=== PATIENT | female | born 1930 | race Caucasian/White ===

== ENCOUNTER 2017-05-07 09:05 | Observation (INO) | payer MEDICARE ==
[2017-05-07] MEDS ORDERED: DIAZEPAM 5 MG/ML 2 ML SYRINGE IVP STA (09:09)
[2017-05-07] MEDS ORDERED: MECLIZINE 25 MG TAB PO STA (09:09)
[2017-05-07] MEDS ORDERED: LABETALOL 5 MG/ML VIAL MDV IVP STA (09:09)
[2017-05-07] MEDS ORDERED: ENALAPRILAT 1.25 MG/ML 1 ML VIAL IVP STA (09:10)
--- NOTE | 2017-05-07 09:13 | ED ---
General Adult HPI - General Stated complaint: Dizziness Time Seen by Provider: 05/07/17 09:05 Source: RN notes reviewed - History of Present Illness Initial comments: This is an 86-year-old female presents emergency Department complaining of dizziness since last night at 8:00. Patient states all of a sudden she got up from her chair and the whole room was spinning and she can barely walk because of the severity of the dizziness. Patient states she also became very nauseated. Patient denies any headache patient denies numbness weakness. Patient states that the dizziness is better with her eyes shut bowel movement her head does not appear to make it worse. Patient denies any palpitations or chest pain. Patient denies being short of breath or having any difficulty breathing. Patient denies abdominal pain patient denies nausea vomiting or diarrhea. Patient denies any recent fever chills or cough. Patient states last night she had a little ringing in the left ear but that is gone now. Patient denies any sudden loss of hearing. Patient denies any similar symptoms in the past. - Related Data Home Medications Medication Instructions Recorded Confirmed Aspirin 81 mg PO DAILY 05/07/17 05/07/17 Atenolol [Tenormin] 50 mg PO DAILY 05/07/17 05/07/17 Calcium Carbonate [Calcium] 1,200 mg PO DAILY 05/07/17 05/07/17 Cholecalciferol (Vitamin D3) 2,000 unit PO DAILY 05/07/17 05/07/17 [Vitamin D3] Fenofibrate [Lofibra] 160 mg PO DAILY 05/07/17 05/07/17 Lisinopril-Hctz 20-12.5 mg 1 tab PO DAILY 05/07/17 05/07/17 [Zestoretic 20-12.5] Multivitamins, Thera [Multivitamin 1 tab PO DAILY 05/07/17 05/07/17 (formulary)] Omeprazole [PriLOSEC] 40 mg PO DAILY 05/07/17 05/07/17 Raloxifene [Evista] 60 mg PO DAILY 05/07/17 05/07/17 Simvastatin [Zocor] 40 mg PO HS 05/07/17 05/07/17 Allergies Allergy/AdvReac Type Severity Reaction Status Date / Time No Known Allergies Allergy Verified 05/07/17 10:28 Review of Systems ROS Statement: Those systems with pertinent positive or pertinent negative responses have been documented in the HPI. ROS Other: All systems not noted in ROS Statement are negative. General Exam - General Exam Comments Initial Comments: GENERAL: Patient is well-developed and well-nourished. Patient is nontoxic and well- hydrated and is in moderate distress. ENT: Neck is soft and supple. No significant lymphadenopathy is noted. Oropharynx is clear. Moist mucous membranes. Neck has full range of motion without eliciting any pain. EYES: The sclera were anicteric and conjunctiva were pink and moist. Extraocular movements were intact and pupils were equal round and reactive to light. Eyelids were unremarkable. PULMONARY: Unlabored respirations. Good breath sounds bilaterally. No audible rales rhonchi or wheezing was noted. CARDIOVASCULAR: There is a regular rate and rhythm without any murmurs gallops or rubs. ABDOMEN: Soft and nontender with normal bowel sounds. No palpable organomegaly was noted. There is no palpable pulsatile mass. SKIN: Skin is clear with no lesions or rashes and otherwise unremarkable. NEUROLOGIC: Patient is alert and oriented x3. Cranial nerves II through XII are grossly intact. Motor and sensory are also intact. Normal speech, volume and content. Symmetrical smile. Cerebellar testing is normal with finger to nose. MUSCULOSKELETAL: Normal extremities with adequate strength and full range of motion. LYMPHATICS: No significant lymphadenopathy is noted PSYCHIATRIC: Normal psychiatric evaluation. Course Vital Signs 05/07/17 05/07/17 05/07/17 09:06 09:26 10:57 Temperature 97.1 F L Pulse Rate 65 66 Respiratory 18 18 Rate Blood Pressure 181/75 152/68 O2 Sat by Pulse 99 98 Oximetry Medical Decision Making - Medical Decision Making EKG shows normal sinus rhythm at 61 bpm NC interval is 138 QRS is 86 QT interval is 452 QTC is 455. EKG shows no ST segment elevation or depression. CT of the brain shows no acute normalities. Chest x-ray shows no acute normalities. Patient received Antivert and Valium. Patient was reevaluated after she had received those medications. Patient was unable to sit up in bed without spinning and becoming severely nauseated. I spoke with Dr. Ricardo she agreed to admit the patient admitted the patient I consult the neurology. I spoke with Dr. Ricardo and she wanted the patient on aspirin daily as well as steroids. - Lab Data Result diagrams: 05/07/17 09:17 05/07/17 09:17 Lab Results 05/07/17 05/07/17 05/07/17 Range/Units 09:17 09:17 09:17 WBC 7.3 (3.8-10.6) k/uL RBC 4.30 (3.80-5.40) m/uL Hgb 13.5 (11.4-16.0) gm/dL Hct 39.3 (34.0-46.0) % MCV 91.4 (80.0-100.0) fL MCH 31.3 (25.0-35.0) pg MCHC 34.2 (31.0-37.0) g/dL RDW 13.5 (11.5-15.5) % Plt Count 180 (150-450) k/uL Neutrophils % 69 % Lymphocytes % 21 % Monocytes % 5 % Eosinophils % 0 % Basophils % 0 % Neutrophils # 5.1 (1.3-7.7) k/uL Lymphocytes # 1.6 (1.0-4.8) k/uL Monocytes # 0.4 (0-1.0) k/uL Eosinophils # 0.0 (0-0.7) k/uL Basophils # 0.0 (0-0.2) k/uL PT (9.0-12.0) sec INR (<1.1) APTT (22.0-30.0) sec Sodium 141 (137-145) mmol/L Potassium 3.6 (3.5-5.1) mmol/L Chloride 104 (98-107) mmol/L Carbon Dioxide 24 (22-30) mmol/L Anion Gap 13 mmol/L BUN 31 H (7-17) mg/dL Creatinine 0.90 (0.52-1.04) mg/dL Est GFR (MDRD) Af Amer >60 (>60 ml/min/1.73 sqM) Est GFR (MDRD) Non-Af 59 (>60 ml/min/1.73 sqM) Glucose 119 H (74-99) mg/dL Calcium 9.6 (8.4-10.2) mg/dL Magnesium 1.5 L (1.6-2.3) mg/dL Total Bilirubin 0.6 (0.2-1.3) mg/dL AST 32 (14-36) U/L ALT 35 (9-52) U/L Alkaline Phosphatase 55 (38-126) U/L Total Creatine Kinase 53 (30-135) U/L CK-MB (CK-2) 1.4 (0.0-2.4) ng/mL CK-MB (CK-2) Rel Index 2.6 Troponin I <0.012 (0.000-0.034) ng/mL Total Protein 6.4 (6.3-8.2) g/dL Albumin 3.9 (3.5-5.0) g/dL 05/07/17 Range/Units 09:17 WBC (3.8-10.6) k/uL RBC (3.80-5.40) m/uL Hgb (11.4-16.0) gm/dL Hct (34.0-46.0) % MCV (80.0-100.0) fL MCH (25.0-35.0) pg MCHC (31.0-37.0) g/dL RDW (11.5-15.5) % Plt Count (150-450) k/uL Neutrophils % % Lymphocytes % % Monocytes % % Eosinophils % % Basophils % % Neutrophils # (1.3-7.7) k/uL Lymphocytes # (1.0-4.8) k/uL Monocytes # (0-1.0) k/uL Eosinophils # (0-0.7) k/uL Basophils # (0-0.2) k/uL PT 11.3 (9.0-12.0) sec INR 1.1 (<1.1) APTT 21.2 L (22.0-30.0) sec Sodium (137-145) mmol/L Potassium (3.5-5.1) mmol/L Chloride (98-107) mmol/L Carbon Dioxide (22-30) mmol/L Anion Gap mmol/L BUN (7-17) mg/dL Creatinine (0.52-1.04) mg/dL Est GFR (MDRD) Af Amer (>60 ml/min/1.73 sqM) Est GFR (MDRD) Non-Af (>60 ml/min/1.73 sqM) Glucose (74-99) mg/dL Calcium (8.4-10.2) mg/dL Magnesium (1.6-2.3) mg/dL Total Bilirubin (0.2-1.3) mg/dL AST (14-36) U/L ALT (9-52) U/L Alkaline Phosphatase (38-126) U/L Total Creatine Kinase (30-135) U/L CK-MB (CK-2) (0.0-2.4) ng/mL CK-MB (CK-2) Rel Index Troponin I (0.000-0.034) ng/mL Total Protein (6.3-8.2) g/dL Albumin (3.5-5.0) g/dL Disposition Clinical Impression: Vertigo Disposition: ADMITTED IP TO THIS HOSP Referrals: Aemya Beatty MD [Primary Care Provider] - 1-2 days Time of Disposition: 11:14
[2017-05-07 09:30] LABS: Basophils % (A) 0 %; CH 32.1; CHCM 35.2; Eosinophils % (A) 0 %; HCT 39.3 % (34.0-46.0); HDW 2.34; HGB 13.5 gm/dL (11.4-16.0); Luc # (Auto) 0.28; Luc % (Auto) 4; Lymphocytes # (A) 1.6 k/uL (1.0-4.8); Lymphocytes % (A) 21 %; MCH 31.3 pg (25.0-35.0); MCHC 34.2 g/dL (31.0-37.0); MCV 91.4 fL (80.0-100.0); Mean Platelet Volume 8.6; Monocytes # (A) 0.4 k/uL (0-1.0); Monocytes % (A) 5 %; Neutrophils # (A) 5.1 k/uL (1.3-7.7); Neutrophils % (A) 69 %; RDW 13.5 % (11.5-15.5); WBC 7.3 k/uL (3.8-10.6); WBC (Perox) 7.27
[2017-05-07 09:37] LABS: AST 32 U/L (14-36); Alkaline Phosphatase 55 U/L (38-126); Blood Urea Nitrogen 31 mg/dL (7-17); Calcium 9.6 mg/dL (8.4-10.2); Carbon Dioxide 24 mmol/L (22-30); Glucose 119 mg/dL (74-99); Non-African American GFR(MDRD) 59 (>60 ml/min/1.73 sqM); Total Bilirubin 0.6 mg/dL (0.2-1.3); Total Protein 6.4 g/dL (6.3-8.2)
[2017-05-07 09:40] LABS: ALT 35 U/L (9-52); Anion Gap 13 mmol/L; Chloride 104 mmol/L (98-107); INR 1.1 (<1.1); Magnesium 1.5 mg/dL (1.6-2.3); Potassium 3.6 mmol/L (3.5-5.1); Prothrombin Time 11.3 sec (9.0-12.0); Sodium 141 mmol/L (137-145)
--- NOTE | 2017-05-07 09:43 | CT ---
EXAMINATION TYPE: CT brain wo con DATE OF EXAM: 05/07/2017 COMPARISON: NONE HISTORY: Dizziness CT DLP: 1108.40 mGycm Automated exposure control for dose reduction was used. FINDINGS: Multiple axial sections were obtained of the brain with no contrast. There is cerebral cortical atrophy. There is no mass effect nor midline shift. There is no sign of in tracranial hemorrhage. The calvarium is intact. There is surgery noted at the left mastoid sinus. IMPRESSION: CEREBRAL ATROPHY. NO ACUTE INTRACRANIAL ABNORMALITY.
[2017-05-07 09:46] LABS: Partial Thromboplastin Time 21.2 sec (22.0-30.0)
[2017-05-07 09:49] LABS: Creatine Kinase 53 U/L (30-135)
[2017-05-07 10:02] LABS: Creatine Kinase MB 1.4 ng/mL (0.0-2.4); Troponin I <0.012 ng/mL (0.000-0.034)
--- NOTE | 2017-05-07 10:09 | XR ---
EXAMINATION TYPE: XR chest 2V DATE OF EXAM: 05/07/2017 COMPARISON: 08/24/2010 HISTORY: Dizziness TECHNIQUE: Frontal and lateral views of the chest are obtained. FINDINGS: There is no heart failure nor confluent pneumonic infiltrate. There are no hilar masses. C ostophrenic angles are clear. There are chest leads. Bony thorax is intact. IMPRESSION: Normal chest. No change.
[2017-05-07] MEDS ORDERED: SODIUM CHLORIDE 0.9% 1,000 ML IV ONE (11:14)
[2017-05-07] MEDS ORDERED: MECLIZINE 25 MG TAB PO PRN (11:15)
[2017-05-07] MEDS ORDERED: ONDANSETRON 4 MG/2 ML VIAL IVP PRN (11:15)
[2017-05-07] MEDS ORDERED: ASPIRIN 81 MG CHEW PO STA (11:20)
[2017-05-07] MEDS ORDERED: predniSONE 20 MG TAB PO STA (11:20)
[2017-05-07 12:33] VITALS: BMI 28.3
--- NOTE | 2017-05-07 14:14 | P.CNNES ---
History of Present Illness Consult date: 05/07/17 Requesting physician: Mallory Ricardo Reason for Consult: Dizziness Chief complaint: Dizziness History of Present Illness: The patient is a pleasant 86-year-old female who is being evaluated by the neurology service per the request of Dr. Ricardo for dizziness. The patient states that she was at home at her normal state of health when she suddenly felt dizzy. She described the dizziness as a spinning sensation. She does recall having fullness in her left ear and also noticing some decreased hearing in the left ear which she noticed when she was talking on the phone. She does have history of chronic hearing loss and does wear hearing aids, but this left ear hearing deficit has significantly worsened over the past couple of days. She also states that she became quite nauseous when the dizziness started. She denies any previous episodes of vertigo. She denies any lateralizing numbness, weakness, or speech difficulties. She was brought into [facility] emergency room for further workup and management. A computed tomography scan of the brain was done which showed generalized atrophy with no acute intracranial abnormalities. Her chest x-ray and CBC were normal. Her cardiac enzymes were also normal. Her compressive metabolic profile was normal except for slightly elevated BUN at 31. At the time of my evaluation, the patient is sitting up in her bed and appears to be in no acute distress. She reports improvements in her symptoms, which she rates at 50%. She has been given Antivert 25 mg orally for her dizziness and Zofran IV for her nausea. She denies any other neurological complaints at this time. Review of Systems All systems: negative Constitutional: Denies chills, Denies fever Eyes: right blurred vision (The patient has chronic visual changes in her right eye.), denies pain Ears, nose, mouth and throat: Reports as per HPI, Reports vertigo, Denies headache, Denies sore throat Cardiovascular: Denies chest pain, Denies shortness of breath Respiratory: Denies cough Gastrointestinal: Denies abdominal pain, Denies diarrhea, Denies nausea, Denies vomiting Genitourinary: Denies dysuria, Denies hematuria Musculoskeletal: Denies myalgias Integumentary: Denies pruritus, Denies rash Neurological: Reports vertigo, Denies numbness, Denies weakness Psychiatric: Denies anxiety, Denies depression Endocrine: Denies fatigue, Denies weight change Past Medical History Past Medical History: Hyperlipidemia, Hypertension History of Any Multi-Drug Resistant Organisms: None Reported Past Surgical History: Adenoidectomy, Hysterectomy Additional Past Surgical History / Comment(s): Lumpectomy with lymphnode removal left arm. Past Anesthesia/Blood Transfusion Reactions: No Reported Reaction Past Psychological History: No Psychological Hx Reported Smoking Status: Never smoker Past Alcohol Use History: Rare Past Drug Use History: None Reported - Past Family History Sister(s) Additional Family Medical History / Comment(s): breast cancer that met's "everywhere". Father Family Medical History: Hyperlipidemia, Hypertension Medications and Allergies Home Medications Medication Instructions Recorded Confirmed Type Aspirin 81 mg PO DAILY 05/07/17 05/07/17 History Atenolol [Tenormin] 50 mg PO DAILY 05/07/17 05/07/17 History Calcium Carbonate [Calcium] 1,200 mg PO DAILY 05/07/17 05/07/17 History Cholecalciferol (Vitamin D3) 2,000 unit PO DAILY 05/07/17 05/07/17 History [Vitamin D3] Fenofibrate [Lofibra] 160 mg PO DAILY 05/07/17 05/07/17 History Lisinopril-Hctz 20-12.5 mg 1 tab PO BID 05/07/17 05/07/17 History [Zestoretic 20-12.5] Multivitamins, Thera [Multivitamin 1 tab PO DAILY 05/07/17 05/07/17 History (formulary)] Omeprazole [PriLOSEC] 40 mg PO DAILY 05/07/17 05/07/17 History Raloxifene [Evista] 60 mg PO DAILY 05/07/17 05/07/17 History Simvastatin [Zocor] 40 mg PO HS 05/07/17 05/07/17 History Allergies Allergy/AdvReac Type Severity Reaction Status Date / Time No Known Allergies Allergy Verified 05/07/17 10:28 Physical Examination - Vital Signs Vital Signs: Vital Signs Temp Pulse Pulse Resp BP BP Pulse Ox 05/07/17 12:30 97.2 F L 63 16 127/68 99 05/07/17 11:52 98.6 F 66 18 160/78 100 05/07/17 10:57 66 18 152/68 98 05/07/17 09:26 97.1 F L 05/07/17 09:06 65 18 181/75 99 Intake and Output 05/06/17 05/07/17 05/07/17 22:59 06:59 14:59 Other: Weight 70.307 kg Patient Weight 05/08/17 06:59 Weight 70.307 kg - Constitutional General appearance: average body habitus, no acute distress - EENT EENT: PERRL, hearing diminished, other (Extraocular muscles are intact with no nystagmus seen.) - Cardiovascular Cardiovascular: regular rate Extremities: no peripheral edema bilaterally - Gastrointestinal Gastrointestinal: soft - Integumentary Integumentary: normal - Neurologic The patient is alert aware and oriented 3. Cranial nerve examination: EOMI, V1/V2/V3 grossly intact, face symmetric, tongue midline Speech examination: intact Sensorimotor examination: intact Detailed motor examination: grossly full strength in all extremities Detailed sensory examination: intact Cerebellar examination: other (No tremors are noticed. [id number] testing showed no dysmetria.) - Psychiatric Psychiatric: mood/affect appropriate Results - Laboratory Findings CBC and BMP: 05/07/17 09:17 05/07/17 09:17 Abnormal Lab Findings: Abnormal Labs 05/07/17 05/07/17 09:17 09:17 APTT 21.2 L BUN 31 H Glucose 119 H Magnesium 1.5 L - Diagnostic Findings Comments: CT of the brain was reviewed, showing generalized atrophy with no acute intracranial abnormalities. Chest x-ray: report reviewed Assessment and Plan (1) Vertigo Status: Acute (2) Nausea Status: Acute Plan: The patient's neurological examination is normal. She is having some hearing changes involving the left ear over the past few days. Her acute vertigo seems to be peripheral in etiology. I did review her computed tomography scan of the brain which showed no acute intracranial abnormalities. I do recommend an ENT consultation. Continue Antivert as needed for her vertigo and continue Zofran as needed for her nausea. An EEG has been ordered. Continue the rest of your current workup and management. I will continue to follow with you. Further recommendations to follow. Thank you for allowing me to participate in the care of your patient. If you have any questions, please for free to contact me. Time with Patient: Less than 30
[2017-05-07] MEDS: ATORVASTATIN 20 MG TAB PO SCH (20:12)
[2017-05-07] MEDS: LISINOPRIL-HCTZ 20-12.5 MG 1 EACH TAB PO SCH (20:12)
[2017-05-08] MEDS: predniSONE 20 MG TAB PO SCH (07:56)
[2017-05-08] MEDS: LISINOPRIL-HCTZ 20-12.5 MG 1 EACH TAB PO SCH ×2 (07:56→21:13)
[2017-05-08] MEDS: PANTOPRAZOLE 40 MG TABLET PO SCH (07:56)
[2017-05-08] MEDS: ATENOLOL 50 MG TAB PO SCH (07:56)
[2017-05-08] MEDS: FENOFIBRATE 160 MG TAB PO SCH (07:57)
[2017-05-08] MEDS: CHOLECALCIFEROL 1,000 UNIT TAB PO SCH (07:57)
[2017-05-08] MEDS: ASPIRIN 325 MG TAB PO SCH (07:57)
[2017-05-08] MEDS ORDERED: ASPIRIN 81 MG CHEW PO SCH (09:00)
[2017-05-08] MEDS: CARBAMIDE PEROXIDE 6.5% DROPS 15 ML BTL LEFT EAR SCH ×2 (11:04→21:13)
[2017-05-08] MEDS ORDERED: CALCIUM CARBONATE 500 MG CHEWABLE PO SCH (12:00)
[2017-05-08] MEDS ORDERED: MULTIVITAMINS, THERA 1 EACH TAB PO SCH (12:00)
--- NOTE | 2017-05-08 15:07 | P.HPIM ---
History of Present Illness H&P Date: 05/08/17 Chief Complaint: Dizziness This is an 86-year-old female patient of Dr. Beatty with a past medical history of hyperlipidemia, hypertension, vitamin D deficiency, gastroesophageal reflux disease. Patient states that on Saturday night she had sudden onset of dizziness. It bothers her when she turned her head or bending over. She denies any weakness to her extremities and no change in her speech. She states she has never had this before. She has a history of a TIA many years ago that affected her vision. CAT scan of the brain shows cerebral atrophy. No acute intracranial abnormality. Chest x-ray is normal. Patient placed on the [facility] floor and consult requested with Dr. Ward. Patient does give history that she has had trouble with her left ear plugging with cerumen and last had a clean 3 months ago. Review of Systems All systems: negative Constitutional: Denies chills, Denies fever Eyes: denies blurred vision, denies pain Ears, nose, mouth and throat: Reports vertigo, Denies headache, Denies sore throat Cardiovascular: Denies chest pain, Denies decreased exercise tolerance, Denies dyspnea on exertion, Denies edema, Denies irregular heart beat, Denies leg edema , Denies lightheadedness, Denies palpitations, Denies paroxysmal nocturnal dyspnea, Denies rapid heart beat, Denies shortness of breath, Denies syncope Respiratory: Denies cough, Denies cough with sputum, Denies dyspnea, Denies excessive sputum, Denies hemoptysis, Denies home oxygen, Denies wheezing Gastrointestinal: Denies abdominal pain, Denies diarrhea, Denies nausea, Denies vomiting Genitourinary: Denies dysuria, Denies hematuria Musculoskeletal: Denies myalgias Integumentary: Denies pruritus, Denies rash Neurological: Denies numbness, Denies weakness Psychiatric: Denies anxiety, Denies depression Endocrine: Denies fatigue, Denies weight change Past Medical History Past Medical History: GERD/Reflux, Hyperlipidemia, Hypertension History of Any Multi-Drug Resistant Organisms: None Reported Past Surgical History: Adenoidectomy, Hysterectomy Additional Past Surgical History / Comment(s): Lumpectomy with lymphnode removal left breast, bilateral cataract removal and intraocular lens implants, colonoscopy. Past Anesthesia/Blood Transfusion Reactions: No Reported Reaction Past Psychological History: No Psychological Hx Reported Smoking Status: Never smoker Past Alcohol Use History: Rare Additional Past Alcohol Use History / Comment(s): Patient is a lifelong nonsmoker. She denies any marijuana or street drug use. She denies any alcohol abuse. Past Drug Use History: None Reported - Past Family History Sister(s) Additional Family Medical History / Comment(s): Patient has one sister that of breast cancer with met's everywhere. Father Family Medical History: Hyperlipidemia, Hypertension Additional Family Medical History / Comment(s): Father at age 80 from coronary artery disease. Mother Additional Family Medical History / Comment(s): Mother at age 79 with history of coronary artery disease and hyperlipidemia. Brother(s) Additional Family Medical History / Comment(s): Patient has 7 brothers. One brother is from unknown type of cancer and one has from coronary artery disease. Patient does not have any children. Medications and Allergies Home Medications Medication Instructions Recorded Confirmed Type Aspirin 81 mg PO DAILY 05/07/17 05/07/17 History Atenolol [Tenormin] 50 mg PO DAILY 05/07/17 05/07/17 History Calcium Carbonate [Calcium] 1,200 mg PO DAILY 05/07/17 05/07/17 History Cholecalciferol (Vitamin D3) 2,000 unit PO DAILY 05/07/17 05/07/17 History [Vitamin D3] Fenofibrate [Lofibra] 160 mg PO DAILY 05/07/17 05/07/17 History Lisinopril-Hctz 20-12.5 mg 1 tab PO BID 05/07/17 05/07/17 History [Zestoretic 20-12.5] Multivitamins, Thera [Multivitamin 1 tab PO DAILY 05/07/17 05/07/17 History (formulary)] Omeprazole [PriLOSEC] 40 mg PO DAILY 05/07/17 05/07/17 History Raloxifene [Evista] 60 mg PO DAILY 05/07/17 05/07/17 History Simvastatin [Zocor] 40 mg PO HS 05/07/17 05/07/17 History Allergies Allergy/AdvReac Type Severity Reaction Status Date / Time No Known Allergies Allergy Verified 05/07/17 10:28 Physical Exam Vitals: Vital Signs Temp Pulse Pulse Pulse Pulse Resp BP 05/08/17 08:00 71 63 80 16 05/08/17 07:00 96.2 F L 63 16 05/07/17 23:00 97.0 F L 80 16 05/07/17 20:11 71 05/07/17 15:00 97.8 F 71 16 05/07/17 12:30 97.2 F L 63 16 05/07/17 11:52 98.6 F 66 18 160/78 05/07/17 10:57 66 18 152/68 BP Pulse Ox 05/08/17 08:00 05/08/17 07:00 136/64 96 05/07/17 23:00 127/58 98 05/07/17 20:11 140/79 05/07/17 15:00 196/79 97 05/07/17 12:30 127/68 99 05/07/17 11:52 100 05/07/17 10:57 98 Intake and Output 05/07/17 05/08/17 05/08/17 22:59 06:59 14:59 Other: Voiding Method Toilet # Voids 1 1 1 # Bowel Movements 1 Gen: This is a 86-year-old female. She is resting in bed appears to be comfortable. HEENT: Head is atraumatic, normocephalic. Pupils equal, round. Sclerae is anicteric. Cerumen impacted in the left ear canal NECK: Supple. No JVD. No lymphadenopathy. No thyromegaly. LUNGS: Clear to auscultation. No wheezes or rhonchi. No intercostal retractions. HEART: Regular rate and rhythm. No murmur. ABDOMEN: Soft. Bowel sounds are present. No masses. No tenderness. EXTREMITIES: No pedal edema. No calf tenderness. NEUROLOGICAL: Patient is awake, alert and oriented x3. Cranial nerves 2 through 12 are grossly intact. Results CBC & Chem 7: 05/07/17 09:17 05/07/17 09:17 Thrombosis Risk Factor Assmnt - DVT/VTE Prophylaxis DVT/VTE Prophylaxis: Mechanical Prophylaxis ordered - Choose All That Apply Any of the Below Risk Factors Present?: No Other Risk Factors: No Other congenital or acquired thrombophilia - If yes, enter type in comment: Yes Thrombosis Risk Factor Assessment Level: Very Low Risk Assessment and Plan Plan: 1. Dizziness. Consult with neurology, carotid ultrasound was ordered as well as EEG. Most likely secondary to impacted ear canal with cerumen. Debrox otic solution 6 drops left ear twice daily and ear irrigation this evening. 2. Hypertension. Continue atenolol 50 mg daily, Zestoretic one twice daily. 3. Hyperlipidemia. Continue Lipitor 20 mg at bedtime, fenofibrate 160 mg daily. 4. Gastroesophageal reflux disease. Continue Protonix. 5. Vitamin D deficiency. 6. Gastrointestinal prophylaxis. Protonix. 7. DVT prophylaxis. Lovenox subcu. Patient placed as an observation visit. Discharge plan: Return home. Most likely discharge home tomorrow. Impression and plan of care have been directed as dictated by the signing physician. Tali Brown nurse practitioner acting as scribe for signing physician.
--- NOTE | 2017-05-08 15:20 | P.PN ---
Subjective Principal diagnosis: Patient is a pleasant 86-year-old female who is being followed by the neurology service for dizziness. Patient states she came in and reported a fullness in her left ear as well as decreased hearing in the left ear as well. She does have history of chronic hearing loss and does wear hearing aids. Patient did not have any lateralizing weakness. Computed tomography scan of the brain was done which showed generalized atrophy with no acute intracranial abnormalities. The time of my evaluation, patient's resting comfortably in bed and appears to be in no acute distress. Patient does report improvement in her symptoms. Patient denies any other neurological complaints at this time. Objective - Vital Signs Vital signs: Vital Signs Temp 96.2 F L 05/08/17 14:33 Pulse 68 05/08/17 14:33 Resp 18 05/08/17 14:33 BP 139/65 05/08/17 14:33 Pulse Ox 94 L 05/08/17 14:33 Intake & Output 05/07/17 05/08/17 05/08/17 18:59 06:59 18:59 Weight 70.307 kg Other: Voiding Method Toilet # Voids 1 1 2 # Bowel Movements 1 - Exam PHYSICAL EXAM: GENERAL APPEARANCE: Patient is a well-developed, female who appears to be in no acute distress. HEENT: Normocephalic, atraumatic, no facial asymmetry is seen. Neck is supple with no masses felt. CARDIOVASCULAR: Regular rate and rhythm. ABDOMEN: Nontender, nondistended. EXTREMITIES: Show no edema or clubbing. NEUROLOGICAL EXAM: Patient is awake, alert, and oriented 3. Speech and language are normal. Strength is full in all 4 extremities. Sensory exam to light touch is normal in all 4 extremities. No facial asymmetry is noted on cranial nerve testing. No tremors or seizure-like activity noted. - Labs CBC & Chem 7: 05/07/17 09:17 05/07/17 09:17 Assessment and Plan Plan: As previously mentioned, computed tomography scan of the brain showed no acute intracranial abnormalities. Patient's neurological examination is normal. Patient states Antivert and Zofran are significantly helping her dizziness and nausea. I continue to recommend an ENT consultation. Patient's acute vertigo seems to be peripheral in etiology. Barring any abnormality on the EEG, I will continue to follow with you on an as-needed basis. Feel free to call with any questions or concerns.
--- NOTE | 2017-05-08 15:36 | US ---
EXAMINATION TYPE: US carotid duplex BILAT DATE OF EXAM: 05/08/2017 COMPARISON: US CLINICAL HISTORY: r/o occlusion. EXAM MEASUREMENTS: RIGHT: Peak Systolic Velocity (PSV) cm/sec ----- Right CCA: 72.9 ----- Right ICA: 80.9 ----- Right ECA: 127.2 ICA/CCA ratio: 1.1 RIGHT: End Diastole cm/sec ----- Right CCA: 10.1 ----- Right ICA: 16.0 ----- Right ECA: 0.0 LEFT: Peak Systolic Velocity (PSV) cm/sec ----- Left CCA: 80.1 ----- Left ICA: 92.9 ----- Left ECA: 96.0 ICA/CCA ratio: 1.2 LEFT: End Diastole cm/sec ----- Left CCA: 11.4 ----- Left ICA: 15.7 ----- Left ECA: 0.0 VERTEBRALS (direction of flow): Right Vertebral: Antegrade Left Vertebral: Antegrade No significant velocity elevations, moderate plaque. IMPRESSION: Atheromatous plaquing without significant flow-limiting stenosis. Plaquing appears gre atest at the left carotid bulb without flow-limiting stenosis based on velocities. Criteria for Assigning % of Stenosis / Diameter reduction (Estimation based on the indirect measurements of the internal carotid artery velocities (ICA PSV). 1. Normal (no stenosis)=ICA PSV < 125 cm/s: ratio < 2.0: ICA EDV<40 cm/s. 2. Less than 50% stenosis=ICA PSV < 125 cm/s: ratio < 2.0: ICA EDV<40 cm/s. 3. 50 to 69% stenosis=ICA PSV of 125 to 230 cm/s: ration 2.0 ? 4.0: ICA EDV 40-100 cm/s. 4. Greater than 70% stenosis to near occlusion= ICA PSV > 230 cm/s: ratio > 4.0: ICA EDV > 100 cm/s. 5. Near occlusion= ICA PSV velocities may be low or undetectable: variable ratio and ICA EDV. 6. Total occlusion=unable to detect flow.
[2017-05-08] MEDS ORDERED: HYDROGEN PEROXIDE BOTTLE TOPICAL ONE (21:00)
[2017-05-08] MEDS: ATORVASTATIN 20 MG TAB PO SCH (21:13)
[2017-05-09 07:22] VITALS: BP 146/69; PULSE 60; RESP 18; TEMP 97.4
[2017-05-09] MEDS: predniSONE 20 MG TAB PO SCH (08:09)
[2017-05-09] MEDS: ASPIRIN 325 MG TAB PO SCH (08:10)
[2017-05-09] MEDS: PANTOPRAZOLE 40 MG TABLET PO SCH (08:10)
[2017-05-09] MEDS: ATENOLOL 50 MG TAB PO SCH (08:10)
[2017-05-09] MEDS: LISINOPRIL-HCTZ 20-12.5 MG 1 EACH TAB PO SCH (08:10)
[2017-05-09] MEDS: FENOFIBRATE 160 MG TAB PO SCH (08:10)
[2017-05-09] MEDS: CHOLECALCIFEROL 1,000 UNIT TAB PO SCH (08:11)
[2017-05-09] MEDS: CARBAMIDE PEROXIDE 6.5% DROPS 15 ML BTL LEFT EAR SCH ×2 (08:11→09:45)
[2017-05-09] MEDS ORDERED: ENOXAPARIN 40 MG/0.4 ML SYRINGE SQ SCH (09:00)
[2017-05-09] MEDS ORDERED: HYDROGEN PEROXIDE BOTTLE TOPICAL STA (09:37)
--- NOTE | 2017-05-09 14:28 | P.DS ---
Providers Date of admission: 05/07/17 11:14 Expected date of discharge: 05/09/17 Attending physician: Mallory Ricardo Consults: 05/07/17 11:14 Consult Physician Urgent Consulting Provider: Sadie Ward Consult Reason/Comments: Vertigo Do you want consulting provider notified?: Yes Primary care physician: Ameya Beatty [facility] Course: This is an 86-year-old female patient of Dr. Beatty with a past medical history of hyperlipidemia, hypertension, vitamin D deficiency, gastroesophageal reflux disease. Patient states that on Saturday night she had sudden onset of dizziness. It bothers her when she turned her head or bending over. She denies any weakness to her extremities and no change in her speech. She states she has never had this before. She has a history of a TIA many years ago that affected her vision. CAT scan of the brain shows cerebral atrophy. No acute intracranial abnormality. Chest x-ray is normal. Patient placed on the [facility] floor and consult requested with Dr. Ward. Patient does give history that she has had trouble with her left ear plugging with cerumen and last had a clean 3 months ago. 05/09: Patient has been evaluated by neurology with recommendations for ENT consultation. The patient continued her eardrops last night and through the morning. She did have her ear flush last evening as well as this morning without improvement and she still continues to have been plugged sensation to the left ear. Patient states that she has this done regularly at Dr. Beatty's office and will have follow-up there and if needed go to Dr. Dobbs. Her dizziness is much improved. Patient does have a walker at home. Patient will be discharged home today in stable condition. Discharge Diagnoses: 1. Dizziness. 2. Hypertension. 3. Hyperlipidemia. 4. Gastroesophageal reflux disease. 5. Vitamin D deficiency. 6. Cerumen impaction in the left ear Patient placed as an observation visit. Discharge plan: Return home. Impression and plan of care have been directed as dictated by the signing physician. Tali Brown nurse practitioner acting as scribe for signing physician. Patient Condition at Discharge: Good Plan - Discharge Summary New Discharge Prescriptions: New Carbamide Peroxide [Debrox Otic] 6 drops LEFT EAR BID bottle Meclizine [Antivert] 25 mg PO TID PRN tab PRN Reason: Vertigo predniSONE 0 mg PO DIRECTED #40 tab Continue Omeprazole [PriLOSEC] 40 mg PO DAILY Cholecalciferol (Vitamin D3) [Vitamin D3] 2,000 unit PO DAILY Simvastatin [Zocor] 40 mg PO HS Raloxifene [Evista] 60 mg PO DAILY Multivitamins, Thera [Multivitamin (formulary)] 1 tab PO DAILY Lisinopril-Hctz 20-12.5 mg [Zestoretic 20-12.5] 1 tab PO BID Fenofibrate [Lofibra] 160 mg PO DAILY Atenolol [Tenormin] 50 mg PO DAILY Aspirin 81 mg PO DAILY Calcium Carbonate [Calcium] 1,200 mg PO DAILY Discharge Medication List Aspirin 81 mg PO DAILY 05/07/17 [History] Atenolol [Tenormin] 50 mg PO DAILY 05/07/17 [History] Calcium Carbonate [Calcium] 1,200 mg PO DAILY 05/07/17 [History] Cholecalciferol (Vitamin D3) [Vitamin D3] 2,000 unit PO DAILY 05/07/17 [History] Fenofibrate [Lofibra] 160 mg PO DAILY 05/07/17 [History] Lisinopril-Hctz 20-12.5 mg [Zestoretic 20-12.5] 1 tab PO BID 05/07/17 [History] Multivitamins, Thera [Multivitamin (formulary)] 1 tab PO DAILY 05/07/17 [History ] Omeprazole [PriLOSEC] 40 mg PO DAILY 05/07/17 [History] Raloxifene [Evista] 60 mg PO DAILY 05/07/17 [History] Simvastatin [Zocor] 40 mg PO HS 05/07/17 [History] Carbamide Peroxide [Debrox Otic] 6 drops LEFT EAR BID bottle 05/09/17 [Rx] Meclizine [Antivert] 25 mg PO TID PRN tab 05/09/17 [Rx] predniSONE 0 mg PO DIRECTED #40 tab 05/09/17 [Rx] Follow up Appointment(s)/Referral(s): Ameya Beatty MD [Primary Care Provider] - 05/20/17 11:00 am (With MUKUL Winslow ) Dae Dobbs DO [Doctor of Osteopathic Medicine] - 05/22/17 11:15 am ( With MUKUL Oliva. ) Sadie Ward MD [STAFF PHYSICIAN] - 1 Week (Office closed. Patient to make self appointment. ) Patient Instructions/Handouts: Vertigo (DC) Discharge Disposition: HOME SELF-CARE
== END 2017-05-09 11:46 | disposition home or self-care (01) ==
LOC: EC 09:05 → 4MS4W 11:14
PROVIDERS: ADMIT Family Medicine; ATTEND Family Medicine
DX: R42 Dizziness and giddiness (principal); R94.31 Abnormal electrocardiogram [ECG] [EKG]; R11.0 Nausea; H91.92 Unspecified hearing loss, left ear; H53.8 Other visual disturbances; I10 Essential (primary) hypertension; E78.5 Hyperlipidemia, unspecified; K21.9 Gastro-esophageal reflux disease without esophagitis; E55.9 Vitamin D deficiency, unspecified; I69.998 Other sequelae following unspecified cerebrovascular disease; H53.9 Unspecified visual disturbance; H61.22 Impacted cerumen, left ear; Z79.899 Other long term (current) drug therapy; Z79.82 Long term (current) use of aspirin; Z82.49 Family history of ischemic heart disease and other diseases of the circulatory system
CPT/HCPCS: 96361 ×2; 96372; 96374; 96375; 99285; 36415; 93005; 80053; 82550; 82553; 83735; 84484; 85025; 85610; 85730; 71020; 93880; 70450; G0378 ×3; J3360; J1650; J7512 ×3

== ENCOUNTER → 2017-06-03 | Outpatient (CLI) | payer MEDICARE ==
[2017-06-03 11:23] LABS: Blood Urea Nitrogen 19 mg/dL (7-17); Non-African American GFR(MDRD) 51 (>60 ml/min/1.73 sqM)
--- NOTE | 2017-06-03 12:31 | MR ---
EXAMINATION TYPE: MR brain and iac wo/w con DATE OF EXAM: 06/03/2017 COMPARISON: MRI brain June 13, 2015. HISTORY: sudden mixed hearing loss, tinnitus, vertigo TECHNIQUE: Multiplanar, multisequence images of the brain and brainstem is performed without and with IV contras t, utilizing 13 mL intravenous MultiHance . Additional imaging of the internal auditory canals is per formed. FINDINGS: Diffusion weighted images demonstrate no evidence of a recent infarct or other diffusion ab normality. There is no worrisome extra-axial fluid collection. There is ventricular and sulcal promi nence consistent with diffuse age-related cerebral atrophy. Scattered foci T2 hyperintensity are seen throughout the deep and periventricular white matter. Lesions are nonspecific in appearance and dist ribution but most likely on basis of product of chronic small vessel ischemic change. No significant change from prior study is identified. Midline structures demonstrate normal morphology. The craniocervical junction appears within normal limits. Post contrast images demonstrate no abnormal enhancement. The dural venous sinuses appear pa tent. The visualized sinuses are clear and the globes are intact. No suspicious fluid signal is seen in mastoid air cells bilaterally. Vestibulocochlear complexes are symmetric and felt within normal limits. No suspicious enhancing cerebellopontine angle mass is ident ified bilaterally. IMPRESSION: 1. Mild to moderate diffuse cerebral atrophy and chronic small vessel ischemic change redemonstrated without significant interval change. 2. No significant new finding present to account for patient's symptoms.
== END | disposition home or self-care (01) ==
LOC: RADMRIMAIN 11:02
PROVIDERS: ATTEND Otolaryngology
DX: I67.82 Cerebral ischemia (principal); G31.9 Degenerative disease of nervous system, unspecified; H93.19 Tinnitus, unspecified ear; R42 Dizziness and giddiness; H93.3X9 Disorders of unspecified acoustic nerve; H91.90 Unspecified hearing loss, unspecified ear
CPT/HCPCS: 82565; 84520; 70553; A9577

== ENCOUNTER → 2018-06-18 | Outpatient (CLI) | payer MEDICARE ==
--- NOTE | 2018-06-18 14:58 | NM ---
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 Abnormal x-ray showing distal femoral infarct. History of breast cancer with left knee pain for 2 months. Delayed whole-body scanning was performed following the injection of 25.8 mCi Tc 99m MDP. Images acq uired 3.5 hours post injection. Whole body images in anterior posterior projection as well as additio nal spot images of the thorax and bilateral lower extremities are acquired. FINDINGS: No suspicious scintigraphic radiotracer uptake is identified to suggest metastatic disease to bone or other suspicious abnormality. There is fairly symmetric increased radiotracer uptake surrounding kne e joints felt to reflect product of degenerative change. IMPRESSION: As above.
== END ==
LOC: RADNMMAIN 10:14
PROVIDERS: ATTEND Internal Medicine
DX: M19.90 Unspecified osteoarthritis, unspecified site (principal)
CPT/HCPCS: 78306; A9503